=== PATIENT | male | born 1940 | race Caucasian/White ===

== ENCOUNTER 2019-09-30 15:43 | Emergency (ER) | payer MEDICARE, SELFPAY ==
--- NOTE | ~2019-09-30 | CT_ITS ---
EXAMINATION: CT brain wo con INDICATION: Headache COMPARISON: 04/05/2019 TECHNIQUE: Standard unenhanced head CT. The dose-length product (DLP) was 605.33 mGy-cm. The mA was a djusted according to patient size. Iterative reconstruction technique was employed. FINDINGS: There is no acute intraparenchymal hemorrhage. No evidence of mass lesion. No evidence of a cute infarction. There is mild periventricular and subcortical hypodensity probably related to small vessel ischemic disease. There is mild prominence of the sulci and ventricles related to cerebral atr ophy. Intracranial calcified cerebral atherosclerosis is noted. There are no extra-axial collections. There is no mass effect or midline shift. The orbits and soft tissues are unremarkable. There appea r to be surgical changes in the maxillary sinuses. IMPRESSION: 1. No acute intracranial abnormality. 2. Age related findings. Reviewed, dictated and finalized at location A.
--- NOTE | ~2019-09-30 | XR_ITS ---
EXAMINATION: XR chest 1V portable INDICATION: Transient alteration of awareness TECHNIQUE: Portable AP chest at 1823 hours COMPARISON: 04/09/2019 FINDINGS: The lungs are free of acute opacities. There is no pleural effusion or pneumothorax. The ca rdiomediastinal silhouette is normal. IMPRESSION: 1. No acute cardiopulmonary abnormality. Reviewed, dictated and finalized at location A.
[2019-09-30 15:59] VITALS: BP 190/80; PULSE 66; RESP 18; TEMP 36.7; O2SAT 98
[2019-09-30 17:10] LABS: Basophils Percent Auto 0.3 % (0.2-1.2); Eosinophils Absolute Auto 0.1 K/mm3 (0-0.3); Immature Granulocyte Absolute 0.03 K/mm3 (0.00-0.031); Immature Granulocyte Percent A 0.3 % (0-0.5); Lymphocytes Absolute Auto 1.28 K/mm3 (0.9-3.2); Lymphocytes Percent Auto 11.5 % (18.3-44.2); Mean Corpuscular HGB Conc 33.3 g/dl (32-36); Mean Corpuscular Hemoglobin 31.1 pg (26-34); Mean Corpuscular Volume 93.4 fl (80-100); Mean Platelet Volume 11.4 fl (7.4-10.4); Monocytes Absolute Auto 0.8 K/mm3 (0.1-0.6); Monocytes Percent Auto 6.8 % (2.6-8.5); Neutrophils Absolute Auto 8.9 K/mm3 (1.3-6.7); Neutrophils Percent Auto 80.1 % (45.5-73.1); Platelet Count Result 204 k/mm3 (150-375); Red Blood Count 4.82 M/mm3 (4.6-6.20); Red Cell Distribution Width 12.8 % (11.5-14.5); White Blood Count 11.1 K/mm3 (4.5-10.0)
[2019-09-30 17:27] LABS: Add Urine Microscopic? YES; Appearance Urine Clear (Clear); Barbiturate Screen Urine Negative (Negative); Benzodiazepines Screen Urine Negative (Negative); Bilirubin Urine Negative (Negative); Blood Urine 1+ (Negative); Color Urine Yellow (Yellow); Glucose Urine UA Negative (Negative); Ketones Urine Negative (Negative); Leukocyte Esterase Ur Negative LEU/UL (Negative); Mucus Urine Rare /lpf; Nitrate Urine Negative (Negative); Protein Urine 2+ mg/dL (Negative); RBC Urine 0-2 /hpf (0-2); Specific Grav Ur 1.018 (1.001-1.035); Squamous Epithelial Cell Urine Rare /hpf (Few); Urobilinogen Urine Negative mg/dL (<2.0); WBC Urine 0-3 /hpf
[2019-09-30 17:39] LABS: Alanine Aminotransferase 20 U/L (4-50); Alkaline Phosphatase 110 U/L (38-126); Aspartate Amino Transferase 32 U/L (17-59); Bilirubin,Total 0.5 mg/dL (0.2-1.3); Blood Urea Nitrogen 29 mg/dL (9-20); Carbon Dioxide 21 mmol/L (22-30); Estimated CRCL calculation 28 ml/min; Estimated Glomerular Filt Rate 36; Ethanol < 10 mg/dL (<10); Glucose 113 mg/dL (75-110)
[2019-09-30 17:47] LABS: Amphetamine Screen Urine Negative (Negative); Cannabinoid Screen Urine Negative (Negative); Cocaine Screen Urine Negative (Negative); Methadone Screen Urine Negative (Negative); Opiate Screen Urine Negative (Negative); Phencyclidine Screen Urine Negative (Negative)
--- NOTE | 2019-09-30 17:49 | ED.PSYCH ---
HPI - Psych General Chief Complaint: Psychiatric Symptoms <Nini Lange MD - Last Filed: 10/01/19 19:26> Stated Complaint: Alt Mental Status/ SI <Nini Lange MD - Last Filed: 10/01/19 19:26> Time Seen by Provider: 09/30/19 17:12 <Nini Lange MD - Last Filed: 10/01/19 19:26> Source: family <Nini Lange MD - Last Filed: 10/01/19 19:26> Mode of arrival: ambulatory <Nini Lange MD - Last Filed: 10/01/19 19:26> Limitations: dementia <Nini Lange MD - Last Filed: 10/01/19 19:26> History of Present Illness HPI Narrative: This patient is an 79 year old male with history of dementia who presents with daughter concerned about patient continued depression . She states a few months ago patient starting having intermittent confusion . She states at that time he was admitted to hospital for pneumonia and he was diagnosed with Dementia. His primary care physician has started him on Dementia medication. She states since that time patient has continued to be depressed and his depression is getting worse. She also states he is having forgetful ness. She states he is not hallucinating. Patient states he is just depressed and he has thought about getting a gun and shooting himself. He has never been assessed or treated for Depression. Patient reports he has intermittent pain all over. He denies abdominal pain today. He does complain of a headache but he is unable to describe his pain. <Nini Lange MD - Last Filed: 10/01/19 19:26> MD complaint: suicidal ideation and feels depressed <Nini Lange MD - Last Filed: 10/01/19 19:26> Related Data Home Medications: Home Medications Medication Instructions Recorded Confirmed amlodipine 10 mg PO DAILY 04/05/19 04/05/19 diclofenac sodium 50 mg PO BID 04/05/19 04/05/19 lisinopril 40 mg PO DAILY 04/05/19 04/05/19 lovastatin 40 mg PO DAILY 04/05/19 04/05/19 <Nini Lange MD - Last Filed: 10/01/19 19:26> Allergies/Adverse Reactions: Allergies Allergy/AdvReac Type Severity Reaction Status Date / Time No Known Allergies Allergy Verified 09/30/19 16:41 <Nini Lange MD - Last Filed: 10/01/19 19:26> Review of Systems Review of Systems: All systems reviewed & are unremarkable except as noted in HPI and below <Nini Lange MD - Last Filed: 10/01/19 19:26> Constitutional: Constitutional: Denies chills and Denies fever(s) <Nini Lange MD - Last Filed: 10/01/19 19:26> Eyes: Eyes: Reports no additional eye complaints <Nini Lange MD - Last Filed: 10/01/19 19:26> Cardiovascular: Cardiovascular: Denies chest pain <Nini Lange MD - Last Filed: 10/01/19 19:26> Respiratory: Respiratory: Reports cough, Denies dyspnea and Denies wheezing <Nini Lange MD - Last Filed: 10/01/19 19:26> Gastrointestinal: Gastrointestinal: Reports abdominal pain, Denies nausea and Denies vomiting <Nini Lange MD - Last Filed: 10/01/19 19:26> Neurologic: Reports headache(s) <Nini Lange MD - Last Filed: 10/01/19 19:26> Psychiatric: Psychiatric: Reports anxiety and Reports depression <Nini Laneg MD - Last Filed: 10/01/19 19:26> [facility] Past Medical History Medical History: Medical History Hypercholesterolemia Hypertension Inguinal hernia <Nini Lange MD - Last Filed: 10/01/19 19:26> Surgical History Surgical History: Surgical History H/O inguinal hernia repair <Nini Lange MD - Last Filed: 10/01/19 19:26> Social History Social History: Social History (Updated 04/05/19 @ 13:21 by Joan Miles NP) Social History: The patient is to Brooke who is durable power contracts attorney. He is a full code. He has 1 daughter. He retired from [employer] Smoking packs per day: 1 Smok
[2019-09-30] MEDS: SODIUM CHLORIDE 0.9% IV 1,000 ML 999 ML IV CONT ×2 (18:11→18:12)
[2019-09-30] MEDS: ALPRAZolam 0.25 MG TABLET 0.125 MG PO (18:12)
[2019-09-30 19:12] VITALS: BP 167/72; PULSE 60; RESP 19; O2SAT 95
--- NOTE | 2019-09-30 19:14 | PC.NURSE ---
Assumed care of patient at this time. Report received from BRAD Velázquez.
[2019-09-30 19:28] LABS: Albumin Level 5.1 g/dL (3.5-5.1); Chloride 106 mmol/L (98-107); Potassium 4.6 mmol/L (3.4-5.0); Sodium 140 mmol/L (137-145)
[2019-09-30 20:59] VITALS: BP 167/80; PULSE 57; O2SAT 96
== END 2019-09-30 21:16 | disposition home or self-care (01) ==
PROVIDERS: General Practice; Emergency Provider Emergency Medicine; PCP Family Medicine Adolescent Medicine
DX: E86.0 Dehydration (principal); F32.9 Major depressive disorder, single episode, unspecified; F03.90 Unspecified dementia, unspecified severity, without behavioral disturbance, psychotic disturbance, mood disturbance, and anxiety; E78.00 Pure hypercholesterolemia, unspecified; I10 Essential (primary) hypertension; F17.210 Nicotine dependence, cigarettes, uncomplicated; R51 Headache
CPT/HCPCS: 36415; 70450; 71045; 80053; 80307; 81001; 84443; 85025; 96365; 99284; A9270; J0131; J7030

== ENCOUNTER → 2021-10-02 12:42 | Emergency (ER) | payer MEDICARE, SELFPAY | END | disposition left against medical advice (07) | LOC: EXPCOLL 12:46 | PROVIDERS: Emergency Provider Nurse Practitioner Family | DX: Z53.21 Procedure and treatment not carried out due to patient leaving prior to being seen by health care provider (principal) | CPT/HCPCS: 99199 ==